=== PATIENT | male | born 1945 | race Caucasian/White ===

== ENCOUNTER → 2018-12-17 | Outpatient (CLI) | payer MEDICARE, OTHER ==
[2018-12-17 08:20] LABS: CHLORIDE,CL 103 mmol/L (98-107); SODIUM,NA 142 mmol/L (136-145)
== END ==
LOC: LL.LAB 07:48
PROVIDERS: ATTEND Internal Medicine Hematology & Oncology
DX: C82.10 Follicular lymphoma grade II, unspecified site (principal)
CPT/HCPCS: 36415; 80048; 80076; 83615; 85025; 85652

== ENCOUNTER 2022-01-26 12:33 | Emergency (ER) | payer MEDICARE, OTHER ==
[2022-01-26 13:25] LABS: CORONAVIRUS COVID-19 NAA NEGATIVE (NEGATIVE); RESPIRATORY SYNCYTIAL VIR NAA NEGATIVE (NEGATIVE)
[2022-01-26 13:44] LABS: ANION GAP 13.6 meq/L (7-15); CHLORIDE,CL 97 mmol/L (98-107); ESTIMATED GFR 59 mL/min (>=60); SODIUM,NA 134 mmol/L (136-145)
[2022-01-26] MEDS ORDERED: Sodium Chloride 0.9% 1,000 ML IV ONE (13:51)
[2022-01-26] MEDS ORDERED: Acetaminophen 325 MG Tab PO ONE (13:52)
[2022-01-26] MEDS ORDERED: methylPREDNISolone Sodium Succinate 125 MG/2 ML SDV IVPUSH ONE (13:53)
[2022-01-26] MEDS ORDERED: Albuterol/Ipratropium 3.0-0.5 MG/3 ML Neb Soln NEB ONE (13:53)
[2022-01-26 16:30] VITALS: BP 114/75
[2022-01-26 16:45] VITALS: PULSE 122
== END 2022-01-26 17:25 | disposition home or self-care (01) ==
LOC: LL.ED 12:33
DX: J10.1 Influenza due to other identified influenza virus with other respiratory manifestations (principal); J44.9 Chronic obstructive pulmonary disease, unspecified; E78.00 Pure hypercholesterolemia, unspecified; I10 Essential (primary) hypertension; E11.9 Type 2 diabetes mellitus without complications; Z79.899 Other long term (current) drug therapy; Z79.84 Long term (current) use of oral hypoglycemic drugs; Z20.822 Contact with and (suspected) exposure to COVID-19
CPT/HCPCS: 0241U; 36415; 71046; 80053; 83605; 85025; 94640; 96361; 96374; 99284; 99284-25; A9270-GY; J2930; J7030; J7620-GY